=== PATIENT | female | born 1995 | race Caucasian/White ===

== ENCOUNTER 2017-11-29 19:22 | Emergency (ER) | payer OTHER ==
[~2017-11-29] VITALS: Ht 154.9 cm; Wt 52.6 kg
[2017-11-29 19:26] VITALS: TEMP 37.1; Ht 154.9 cm; Wt 52.6 kg
--- NOTE | 2017-11-29 20:02 | EMERGENCY ROOM VISIT NOTE ---
History Report prepared by Reina: Jake Thurston Under the Supervision of: Dr. Carolina Mahmood M.D. First contact with patient: 19:41 Chief Complaint: GROIN PAIN Stated Complaint: VAGINAL PAIN, SORENESS, ULCERS History of Present Illness The patient is a 22 year old female who presents to the Emergency Room with complaints of constant vaginal pain beginning yesterday. The patient states that she was away for spring 3 weeks ago. She notes that when she came back, she had a mild amount of vaginal pain. 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 The patient states that she was given lidocaine for her symptoms. She notes that she was given an antiviral by her doctor, and took it for a week with relief of her symptoms. She reports that she had protected sex last night and began to experience pain afterwards. The patient states that she has also been having vaginal bleeding today. Source of History: patient Onset: yesterday Position: other (vagina) Symptom Intensity: 02/15 Timing: constant Modifying Factors (Relieving): other (antiviral medication) Note: The patient also complains of vaginal bleeding. Review of Systems See HPI for pertinent positives & negatives. A total of 10 systems reviewed and were otherwise negative. Past Medical & Surgical Medical Problems: (1) HSV-1 infection Genital HSV Family History No pertinent family history stated. Social History Smoking Status: Never Smoker Marital Status: single Housing Status: lives with roommate Occupation Status: student Current/Historical Medications Scheduled Control Pills ( Control Pills), 1 TAB PO DAILY Valacyclovir (Valtrex), 500 MG PO BID Allergies Coded Allergies: No Known Allergies (Unverified , 11/29/17) Physical Exam Vital Signs Date Time Temp Pulse Resp B/P (MAP) Pulse Ox O2 Delivery O2 Flow Rate FiO2 11/29/17 21:21 85 18 132/78 99 11/29/17 19:26 37.1 91 18 125/90 98 Room Air Physical Exam Vital signs reviewed. General: Well-appearing female, in no significant distress. HEENT: No scleral icterus, PERRLA, neck supple. Atraumatic. Cardiovascular: Regular rate and rhythm, no extra sounds. Pulmonary: Clear to auscultation bilaterally, normal work of breathing. Abdomen: Soft, nontender, nondistended, positive bowel sounds. Pelvic: Swollen labia bilaterally. Linear appearing ulceration to the left labia with additional tear/ulceration at the posterior vaginal introitus. Milky white vaginal d/c. Tender to touch. + CMT, no adnexal mass appreciated. Musculoskeletal: Atraumatic, no peripheral edema. Neurologic: Patient awake alert and oriented x 3 Skin: Warm, dry, no rash Medical Decision & Procedures Laboratory Results Test 11/29/17 20:25 Laboratory results per my review. Medications Administered Medications (Trade) Dose Ordered Sig/Hyun Route Start Time Stop Time Status Last Admin Dose Admin Azithromycin (Zithromax Tab) 1,000 mg NOW ONCE PO 11/29/17 20:30 11/29/17 20:32 DC 11/29/17 20:51 1,000 MG Ondansetron HCl (Zofran Odt) 4 mg NOW STAT PO 11/29/17 20:29 11/29/17 20:32 DC 11/29/17 20:51 4 MG Ceftriaxone Sodium 250 mg/ Syringe 0.7143 ml @ 0 mls/min NOW STAT IM 11/29/17 21:13 11/29/17 21:14 DC 11/29/17 21:13 0.1734 MLS/MIN ED Course 1950: Past medical records reviewed. The patient was evaluated in room A9. A complete history and physical examination was performed. 2026: I performed a pelvic exam on the patient. 2028: Zofran Odt 4mg PO 2029: Azithromycin 1000mg PO, Rocephin Inj 250mg IM 2036: Upon reevaluation, the patient appeared to have improvement of her symptoms. I discussed findings with her. She verbalized agreement of the treatment plan. The patient was discharged home. Medical Decision Differential diagnoses include: STD, vaginitis, contact dermatitis, trauma, UTI , and yeast infection. This pt was evaluated and appeared to be in no distress. Pt was examined and left to be suffering a recurrent genital herpes outbreak. She states testing at [facility] 2 weeks ago was positive for HSV-1. Pt completed a 1 week course of valtrex with improvement. Pt has d/c and pain today. She was sexually active again, but states she was feeling improved. A viral swab was repeated, GC and chlamydia PCR sent. Gram stain and cx was also performed. Pt was given ceftriaxone 250 mg IM, azithromycin 1 gm po. A Rx for flagyl 1000 mg BID tomorrow was sent. She was advised no alcohol for at least 24 hours after sonja flagyl. Pt was asked to resume valtrax 100 mg BID. Pt will f.u with OBGYN this week. She will return to the ED for worsening of symptoms or any medical concerns. Blood Pressure Screening Patient's blood pressure: Normal blood pressure Blood pressure disposition: Did not require urgent referral Impression Primary Impression: Genital herpes Additional Impression: Cervicitis Scribe Attestation The scribe's documentation has been prepared under my direction and personally reviewed by me in its entirety. I confirm that the note above accurately reflects all work, treatment, procedures, and medical decision making performed by me. Departure Information Dispostion Home / Self-Care Referrals No Doctor, Assigned (PCP) Forms HOME CARE DOCUMENTATION FORM, IMPORTANT VISIT INFORMATION, WORK / SCHOOL INSTRUCTIONS Patient Instructions My [facility] Additional Instructions Diagnosis: Genital herpes, cervicitis Continue Valtrex1000 mg twice daily for 10 days. You were treated with ceftriaxone and azithromycin this evening. Metronidazole 1000 mg in the morning and again tomorrow evening. No alcohol within 24 hours of this medication. Continue lidocaine jelly for relief of your discomfort. Ibuprofen 600 mg every 6 hours as needed for pain with food. Follow-up with [facility], see Dr. Thomason's information below. [facility] physician group [facility]. Return to the emergency department for worsening of symptoms or any medical concerns. Problem Qualifiers
[2017-11-29] MEDS ORDERED: BCPILLS PO (20:07)
[2017-11-29] MEDS ORDERED: VALA500T60 PO (20:08)
[2017-11-29] MEDS ORDERED: ONDANSETRON 4MG OD TAB PO STA (20:29)
[2017-11-29] MEDS ORDERED: CEFTRIAXONE SOD INJ 250 MG/ML VIAL IM ONE (20:30)
[2017-11-29] MEDS ORDERED: AZITHROMYCIN 250 MG TAB PO ONE (20:30)
[2017-11-29] MEDS ORDERED: METR-163 PO (20:42)
[2017-11-29] MEDS ORDERED: CEFTRIAXONE SOD 350MG/ML 1 GM VIAL IM ONE (20:49)
[2017-11-29] MEDS ORDERED: CEFTRIAXONE SOD IM STA (21:13)
[2017-11-29 21:21] VITALS: BP 132/78; PULSE 85; O2SAT 99
== END 2017-11-29 21:22 | disposition home or self-care (01) ==
LOC: C.EDB 19:24 → C.EDA 21:22
DX: A60.09 Herpesviral infection of other urogenital tract (principal); N72 Inflammatory disease of cervix uteri